=== PATIENT | male | born 1940 | race Caucasian/White ===

== ENCOUNTER 2018-04-01 15:05 | Emergency (ER) | payer OTHER ==
[~2018-04-01] VITALS: Ht 165.1 cm; Wt 83.9 kg
[~2018-04-01 15:05] MED LIST: ALLOPURINOL 30300 M2 PO; AMARYL4 MG PO; CIPRO250 M1 PO; COUMADIN 2 MG TA2 M1 PO; COUMADIN 5 MG TA5 M1; GLUCOPHAGE500 MG PO; HYDROCODON-ACE1 EACH PO; NAPROSYN500 MG PO; NORCO 10-325 T1 EACH PO; STOOL SOFTENER50 MG PO; TRAMADOL 50 MG50 MG PO; ZOCOR40 MG PO
[2018-04-01] MEDS ORDERED: MIRALAX17 GM PO (15:15)
[2018-04-01 16:34] VITALS: BP 179/66
== END 2018-04-01 16:36 | disposition home or self-care (01) ==
LOC: ER 15:05
DX: S01.01XA Laceration without foreign body of scalp, initial encounter (principal); Z23 Encounter for immunization; E78.00 Pure hypercholesterolemia, unspecified; I10 Essential (primary) hypertension; E11.40 Type 2 diabetes mellitus with diabetic neuropathy, unspecified; M10.9 Gout, unspecified; Z98.890 Other specified postprocedural states; Z96.653 Presence of artificial knee joint, bilateral; Z88.5 Allergy status to narcotic agent; W10.9XXA Fall (on) (from) unspecified stairs and steps, initial encounter; Y92.89 Other specified places as the place of occurrence of the external cause; Y93.89 Activity, other specified; Y99.8 Other external cause status